=== PATIENT | female | born 1960 | race American Indian/Alaskan Native ===

== ENCOUNTER 2017-03-14 07:53 | Emergency (ER) | payer OTHER ==
[2017-03-14 08:13] VITALS: BP 143/83
[2017-03-14 08:35] LABS: Hematocrit 39.5 % (30.3-42.9); Hemoglobin 13.5 gm/dl (10.1-14.3); Mean Corpuscular HGB Conc 34 % (30-34); Mean Corpuscular Hemoglobin 31 pg (28-32); Mean Corpuscular Volume 90 fl (79-97); Platelet Count 263 K/mm3 (140-440); Red Blood Count 4.38 M/mm3 (3.65-5.03); White Blood Count 7.3 K/mm3 (4.5-11.0)
[2017-03-14 08:49] LABS: Anion Gap 19 mmol/L; BUN/Creatinine Ratio 14; Blood Urea Nitrogen 10 mg/dL (7-17); Calcium 10.1 mg/dL (8.4-10.2); Carbon Dioxide 28 mmol/L (22-30); Chloride 95.7 mmol/L (98-107); Glucose 111 mg/dL (65-100); Potassium 4.3 mmol/L (3.6-5.0); Sodium 138 mmol/L (137-145)
[2017-03-14 08:52] LABS: Bilirubin,Urine NEG (Negative); Blood,Urine NEG (Negative); Ketones,Urine NEG (Negative); Leukocyte Esterase,Urine NEG (Negative); Nitrite,Urine NEG (Negative); Protein,Urine <15 mg/dL mg/dL (Negative); Urobilinogen,Urine < 2.0 mg/dL (<2.0)
[2017-03-14 09:30] LABS: Anisocytosis 1+; Basophils % (Manual) 0 % (0.0-1.8); Blastocytes % (Manual) 0 %; Diff Status Complete; Stomatocytes Few
--- NOTE | 2017-03-14 11:31 | Emergency Department Report ---
HPI - General Chief Complaint: Pain General Time Seen by Provider: 03/14/17 11:05 - HPI HPI: Patient here complaining of body ache and pain for week. States that she has a history of arthritis and fibromyalgia. States that she feels like she is having a flareup. She says [facility] and she is not able to get narcotics from the [facility]. She is also complaining of nausea without any vomiting. Denies any cough or shortness of breath. Denies any chest pain. Generalized pain is 9 out of 10. Pain is worse with moving around and better with resting. She said her pain feels achy. She complains of pain mostly to her joints. ED Past Medical Hx - Past Medical History Previous Medical History?: Yes Hx Hypertension: Yes Hx Arthritis: Yes Additional medical history: fibromyalgia - Surgical History Past Surgical History?: Yes Additional Surgical History: Left hand , Right elbow, Umbilical hernia repair, Hysterectomy - Family History Family history: hypertension - Social History Smoking Status: Never Smoker Substance Use Type: Prescribed - Medications Home Medications: Home Medications Medication Instructions Recorded Confirmed Last Taken Type Diclofenac EC 75 mg PO BID 03/14/17 03/14/17 03/13/17 History Lisinopril/Hydrochlorothiazide 1 tab PO DAILY 03/14/17 03/14/17 03/13/17 History [Lisinopril-Hctz 20-25 mg Tab] Nortriptyline HCl [Nortriptyline 1 tab PO BID 03/14/17 03/14/17 03/13/17 History HCl] Pregabalin [Lyrica] 150 mg PO BID 03/14/17 03/14/17 03/13/17 History predniSONE [Deltasone] 50 mg PO QDAY #5 tab 03/14/17 Unknown Rx traMADol [Ultram] 50 mg PO Q6HR PRN #12 tablet 03/14/17 Unknown Rx ED Review of Systems ROS: Stated complaint: BODY ACHES Other details as noted in HPI Comment: All other systems reviewed and negative Constitutional: no symptoms reported Eyes: denies: eye pain, vision change ENT: denies: throat pain, congestion Respiratory: no symptoms reported Cardiovascular: denies: chest pain, palpitations, dyspnea on exertion, orthopnea , edema, syncope, paroxysmal nocturnal dyspnea Gastrointestinal: denies: abdominal pain, nausea, vomiting, diarrhea, constipation, hematemesis, melena, hematochezia Musculoskeletal: arthralgia, myalgia. denies: back pain, joint swelling Skin: denies: rash Neurological: denies: headache, weakness, numbness, paresthesias, confusion, abnormal gait, vertigo Physical Exam - Physical Exam Vital Signs: Vital Signs 03/14/17 08:08 Temperature 98.3 F Pulse Rate 83 Respiratory 20 Rate Blood Pressure 143/83 O2 Sat by Pulse 99 Oximetry General: 56-year-old female well-nourished well-developed in no acute distress. Physical Exam: Head: Normocephalic, atraumatic, no abrasion, no bruising and no contusion. Eyes: Biateral pupils equal and reactive to light, bilateral EOM intact.. Bilateral conjunctival and sclera without injection, normal accommodation. No nystagmus Mouth: Moist, no pharyngeal exudate or erythema. No peritonsillar abscess. Tongue is normal Neurological: GCS at 15, Pt is alert and oriented 3 speech is clear period. Bilateral hand bulk clerk strong and equal. Normal gait. Negative Romberg and no pronator drift. Normal Reflexes. No motor or sensory deficit Neck: Supple, No Cervical adenopathy, full range of motion and no C-spine tenderness. No swelling or tracheal deviation normal reflexes Back: No vertebral tenderness, no paraspinal tenderness. Ambulates without any difficulties. Cardiovascular: S1, S2. Regular rate and rhythm. No murmur. Capillary refill is less then 3 seconds. Lungs: Clear to auscultate bilaterally. No rhonchi, wheezes or rales. No chest wall tenderness MSK: Strength 5/5 in all extremities. No joint deformity or crepitus. Normal inspection. Full range of motion to all extremities Extremities: No clubbing, cyanosis or edema. +2 pulses. No neurovascular compromise Skin: Clean, dry and intact. No rash or lesions. ED Course Vital Signs 03/14/17 08:08 Temperature 98.3 F Pulse Rate 83 Respiratory 20 Rate Blood Pressure 143/83 O2 Sat by Pulse 99 Oximetry - Reevaluation(s) Reevaluation #1: 03/14/17 13:05 Patient received Decadron 10 mg IM and Toradol 30 mg IM for chronic pain. ED Medical Decision Making - Lab Data Result diagrams: 03/14/17 08:17 03/14/17 08:17 Lab Results 03/14/17 03/14/17 03/14/17 Range/Units 08:17 08:17 08:33 WBC 7.3 (4.5-11.0) K/mm3 RBC 4.38 (3.65-5.03) M/mm3 Hgb 13.5 (10.1-14.3) gm/dl Hct 39.5 (30.3-42.9) % MCV 90 (79-97) fl MCH 31 (28-32) pg MCHC 34 (30-34) % RDW 13.0 L (13.2-15.2) % Plt Count 263 (140-440) K/mm3 Lymph % (Auto) Therapy Director Add Manual Diff Complete Total Counted 100 Seg Neutrophils % Therapy Director Seg Neuts % (Manual) 35.0 L (40.0-70.0) % Band Neutrophils % 0 % Lymphocytes % (Manual) 55.0 H (13.4-35.0) % Reactive Lymphs % (Man) 0 % Monocytes % (Manual) 4.0 (0.0-7.3) % Eosinophils % (Manual) 6.0 H (0.0-4.3) % Basophils % (Manual) 0 (0.0-1.8) % Metamyelocytes % 0 % Myelocytes % 0 % Promyelocytes % 0 % Blast Cells % 0 % Nucleated RBC % Not Reportable Seg Neutrophils # Man 2.6 (1.8-7.7) K/mm3 Band Neutrophils # 0.0 K/mm3 Lymphocytes # (Manual) 4.0 (1.2-5.4) K/mm3 Abs React Lymphs (Man) 0.0 K/mm3 Monocytes # (Manual) 0.3 (0.0-0.8) K/mm3 Eosinophils # (Manual) 0.4 (0.0-0.4) K/mm3 Basophils # (Manual) 0.0 (0.0-0.1) K/mm3 Metamyelocytes # 0.0 K/mm3 Myelocytes # 0.0 K/mm3 Promyelocytes # 0.0 K/mm3 Blast Cells # 0.0 K/mm3 WBC Morphology Not Reportable Hypersegmented Neuts Not Reportable Hyposegmented Neuts Not Reportable Hypogranular Neuts Not Reportable Smudge Cells Not Reportable Toxic Granulation Not Reportable Toxic Vacuolation Not Reportable Dohle Bodies Not Reportable Pelger-Huet Anomaly Not Reportable Kenneth Rods Not Reportable Platelet Estimate Appears normal Clumped Platelets Not Reportable Plt Clumps, EDTA Not Reportable Large Platelets Not Reportable Giant Platelets Not Reportable Platelet Satelliting Not Reportable Plt Morphology Comment Not Reportable RBC Morphology Not Reportable Dimorphic RBCs Not Reportable Polychromasia Not Reportable Hypochromasia Not Reportable Poikilocytosis Not Reportable Anisocytosis 1+ Microcytosis Not Reportable Macrocytosis Not Reportable Spherocytes Not Reportable Pappenheimer Bodies Not Reportable Sickle Cells Not Reportable Target Cells Not Reportable Tear Drop Cells Not Reportable Ovalocytes Not Reportable Stomatocytes Few Helmet Cells Not Reportable [place] Bodies Not Reportable [place] Rings Not Reportable Laura Cells Not Reportable Bite Cells Not Reportable Crenated Cell Not Reportable Elliptocytes Not Reportable Acanthocytes (Spur) Not Reportable Rouleaux Not Reportable Hemoglobin C Crystals Not Reportable Schistocytes Not Reportable Malaria parasites Not Reportable Timmy Bodies Not Reportable Hem Pathologist Commnt No Sodium 138 (137-145) mmol/L Potassium 4.3 (3.6-5.0) mmol/L Chloride 95.7 L (98-107) mmol/L Carbon Dioxide 28 (22-30) mmol/L Anion Gap 19 mmol/L BUN 10 (7-17) mg/dL Creatinine 0.7 (0.7-1.2) mg/dL Estimated GFR > 60 ml/min BUN/Creatinine Ratio 14 % Glucose 111 H (65-100) mg/dL Calcium 10.1 (8.4-10.2) mg/dL Urine Color Yellow (Yellow) Urine Turbidity Clear (Clear) Urine pH 6.0 (5.0-7.0) Ur Specific [place] 1.009 (1.003-1.030) Urine Protein <15 mg/dl (Negative) mg/dL Urine Glucose (UA) Neg (Negative) mg/dL Urine Ketones Neg (Negative) mg/dL Urine Blood Neg (Negative) Urine Nitrite Neg (Negative) Urine Bilirubin Neg (Negative) Urine Urobilinogen < 2.0 (<2.0) mg/dL Ur Leukocyte Esterase Neg (Negative) Urine WBC (Auto) 2.0 (0.0-6.0) /HPF Urine RBC (Auto) 2.0 (0.0-6.0) /HPF U Epithel Cells (Auto) 4.0 (0-13.0) /HPF - Medical Decision Making ED course: Patient here for acute exacerbation of chronic pain. She has a history of arthritis and fibromyalgia and said that she is not able to get any medication from the clinic that she goes to. Patient was also complaining of nausea without any vomiting but she was not having any nausea with examination. I discussed the patient that she should follow-up at [facility] and also a intern product marketing manager for management of her chronic pain. She was given Toradol 30 mg IM and Decadron 10 mg IM. Patient said when she had insurance and she was seen a specialist they had her on prednisone and it helped her a lot. I explained diagnosis and treatment plan and patient was understanding I also discussed her lab results with her. Please refer to laboratory section for lab results. Patient discharged home a prescription for tramadol and prednisone and to follow up. Critical care attestation.: If time is entered above; I have spent that time in minutes in the direct care of this critically ill patient, excluding procedure time. ED Disposition Clinical Impression: Arthralgia of multiple sites, bilateral, Myalgia Disposition: [id number] TO HOME OR SELFCARE Is pt being admited?: No Does the pt Need Aspirin: No Condition: Stable Instructions: Osteoarthritis (ED), Fibromyalgia (ED), Chronic Pain (ED) Additional Instructions: Follow-up at [facility]. Increasing her fluid intake Do not drive or operate heavy machinery while taking Ultram as this medication causes drowsiness Prescriptions: predniSONE [Deltasone] 50 mg PO QDAY #5 tab traMADol [Ultram] 50 mg PO Q6HR PRN #12 tablet PRN Reason: Pain Referrals: [facility] [Outside] - 2-3 Days PRIMARY CARE, [Primary Care Provider] - 2-3 Days Forms: Work/School Release Form(ED)
[2017-03-14] MEDS ORDERED: DECADRON IM ONE (13:04)
[2017-03-14] MEDS ORDERED: TORADOL IM ONE (13:05)
== END 2017-03-14 13:35 | disposition home or self-care (01) ==
LOC: ED 07:53
DX: M79.1 Myalgia (principal); M25.50 Pain in unspecified joint; I10 Essential (primary) hypertension; M19.90 Unspecified osteoarthritis, unspecified site; Z90.710 Acquired absence of both cervix and uterus
CPT/HCPCS: 36415; 80048; 81001; 85007; 85025; 96372; 99283; J1100; J1885